=== PATIENT | female | born 1930 | race Caucasian/White ===

== ENCOUNTER 2017-06-02 19:36 | Inpatient (IN) | payer OTHER ==
[~2017-06-02] VITALS: Ht 157.5 cm; Wt 81.6 kg
--- NOTE | 2017-06-02 19:36 | NUR ---
Patient MIMATristin MATT, triaged by RN. Waiting for an available bed.
[2017-06-02 19:40] VITALS: BP 148/86
[2017-06-02] MEDS ORDERED: KETOROLAC 30 MG/ML VIAL IM ONE (19:50)
--- NOTE | 2017-06-02 20:02 | NUR ---
Patient taken to CT scan via ambulance gurney by tech.
--- NOTE | 2017-06-02 20:36 | NUR ---
Patient transferred to bed 10 for further care. RN evaluating patient at bedside.
--- NOTE | 2017-06-02 20:52 | NUR ---
Patient taken to CT scan via gurney by Bex.
--- NOTE | 2017-06-02 21:00 | NUR ---
87Y/F BIBA C/O RT HIP PAIN. PMH DM, HTN, DEMENTIA. PERUVIAN SPEAKING ONLY.ALLERGY TO ERYTHROMYCIN AND CITRUS. PER EMS PT WAS TRYING TO GET OUT OF BED AND FELL ONTO RT HIP. SKIN TO RT HIP IS INTACT, NO BRUISING NOTED AT THIS TIME. PT IS SPEAKING MUMBLED PERUVIAN THAT DOES NOT MAKE SENSE. PT IS AWAKE AND ALERT TO NAME. PER EMS PT DOES NOT AMBULATE AT HOME. ER MD AWARE OF PT STATUS.
[2017-06-02 22:45] LABS: BASOPHILS # (AUTO) 0.3 K/uL (0.00-0.22); BASOPHILS % (AUTO) 3.1 % (0.0-2.0); EOSINOPHILS # (AUTO) 0.1 K/uL (0-0.4); EOSINOPHILS % (AUTO) 0.7 % (0.0-4.0); HEMATOCRIT 39.3 % (36-48); HEMOGLOBIN 12.9 g/dL (12.0-16.0); LYMPHOCYTES # (AUTO) 0.9 K/uL (2.5-16.5); LYMPHOCYTES % (AUTO) 8.9 % (20.5-51.1); MEAN CORPUSCULAR HEMOGLOBIN 27 pg (27-31); MEAN CORPUSCULAR HGB CONC 33 g/dL (33-37); MEAN CORPUSCULAR VOLUME 82 fL (80-94); MONOCYTES # (AUTO) 0.9 K/uL (0.8-1.0); MONOCYTES % (AUTO) 9.3 % (1.7-9.3); NEUTROPHILS # (AUTO) 7.6 K/uL (1.8-7.7); PLATELET COUNT (AUTO) 452 K/uL (140-450); RED BLOOD CELL COUNT(AUTO) 4.79 MIL/uL (4.20-5.40); WHITE BLOOD COUNT (AUTO) 9.8 K/uL (4.8-10.8)
[2017-06-02 22:53] LABS: ANION GAP 16.4 (8-16); CARBON DIOXIDE 24.9 mmol/L (21-32); CHLORIDE 104 mmol/L (98-107); CREATININE 2.7 mg/dL (0.6-1.3); GLUCOSE 142 mg/dL (74-106); POTASSIUM 4.3 mmol/L (3.5-5.1); SODIUM SERUM 141 mmol/L (136-145); UREA NITROGEN, BLOOD 37 mg/dL (7-18)
[2017-06-02 22:59] LABS: ALBUMIN 2.1 g/dL (3.4-5.0); ASPARTATE AMINOTRANSFERASE 21 U/L (15-37); TOTAL BILIRUBIN 0.4 mg/dL (0.0-1.0)
[2017-06-02] MEDS ORDERED: NACL 0.9% 500 ML IV ONE (23:05)
[2017-06-02] MEDS ORDERED: MORPHINE SULFATE 4 MG/ML SYR IVP ONE (23:05)
--- NOTE | 2017-06-02 23:34 | NUR ---
PT IS SPEAKING IN NEPALI BUT DOES NOT MAKE SENSE. PT IS TRYING TO GET OUT OF BED, REORIENTED PT TO STAY IN BED. SIDE RAILS UP X2. COMFORT NEEDS MET AT THIS TIME, WILL CONTINUE TO MONITOR.
[2017-06-03] VITALS (7 sets, daily range): BP systolic 81–119; BP diastolic 52–85
--- NOTE | 2017-06-03 | NUR ---
PT IN BED SPEAKING BAHRAINI PULLING OFF LEADS, REORIENTED, WILL CONTINUE TO MONITOR , SIDE RAILS UP X2.
--- NOTE | 2017-06-03 00:02 | NUR ---
PER PT RECORDS PACKET PT WAS DIAGNOSED W/ C.DIFF. AT [facility] ON 05/28/17. ADMITTING MD NOTIFIED. PT ALSO HAS RECORD OF BL PE, DVT OF UNKNOWN DATE.
[2017-06-03] MEDS ORDERED: HYDROcodone/APAP 5/325 MG 1 TAB TAB PO PRN (00:35)
[2017-06-03] MEDS ORDERED: ONDANSETRON 4 MG/2 ML VIAL IVP PRN (00:35)
[2017-06-03] MEDS ORDERED: INSULIN LISPRO SLIDING SCALE 100 UNITS/ML VIAL SUBQ PRN (00:35)
[2017-06-03] MEDS ORDERED: ACETAMINOPHEN 325 MG TAB PO PRN (00:35)
[2017-06-03] MEDS ORDERED: DEXTROSE 50% 50 ML SYR IVP PRN (00:35)
[2017-06-03] MEDS ORDERED: MECLIZINE 25 MG TAB PO PRN (00:35)
[2017-06-03] MEDS ORDERED: MORPHINE SULFATE 2 MG/ML SYR IVP PRN (00:35)
--- NOTE | 2017-06-03 00:41 | NUR ---
Patient will be admitted to care of DR TUBBS. Admited to TELE. Will go to room 124-A. Belongings list completed. Report to ANTHONY VALADEZ.
--- NOTE | 2017-06-03 00:55 | NUR ---
PT ARRIVED IN THE UNIT, RECEIVED REPORT FROM ER NURSE, PT STABLE, NO DISTRESS NOTED, CONFUSED, ALERT ORIENTED X1, IV TO L AC INFUSING WELL, CALL LIGHT WITHIN REACH, WILL CONTINUE TO MONITOR.
--- NOTE | 2017-06-03 01:14 | NUR ---
RADIOLOGY CALLED SAYING THAT CT AND PORTABLE XRAY WON'T BE AVAILABE UNTIL 6 AND 7 AM
[2017-06-03] MEDS ORDERED: ASCO500T45 PO (01:33)
[2017-06-03] MEDS ORDERED: CRAN450C PO (01:35)
[2017-06-03] MEDS ORDERED: LACT-2 (01:37)
[2017-06-03] MEDS ORDERED: LOSA100T1 PO (01:38)
[2017-06-03] MEDS ORDERED: METF500T2 PO (01:38)
[2017-06-03] MEDS ORDERED: APIX5TAB PO (01:39)
[2017-06-03] MEDS ORDERED: QUEtiapine FUMARATE 25 MG TAB PO PRN (01:40)
[2017-06-03] MEDS ORDERED: OMEP20TC12 PO (01:40)
[2017-06-03] MEDS ORDERED: VAN500I (01:40)
[2017-06-03] MEDS: NACL 0.9% 1,000 ML IV SCH ×3 (02:39→19:00)
--- NOTE | 2017-06-03 03:59 | NUR ---
PT BP 83/52, RETOOK BP 83/52, CALLED DR MORGAN REGARDING PT BP, TO BOLUS PT WITH NS, AND WILL PUT IN ORDERS.
[2017-06-03] MEDS ORDERED: NACL 0.9% 1,000 ML IV ONE (04:00)
--- NOTE | 2017-06-03 04:45 | NUR ---
1L BOLUS DONE, PT BP 104/54, NO S/S OF DISTRESS, PT STABLE, CALL LIGHT WITHIN REACH, WILL CONTINUE TO MONITOR.
[2017-06-03 04:52] LABS: FREE T4 (FREE THYROXINE) 1.51 ng/dL (0.76-1.46); MAGNESIUM 1.3 mg/dL (1.8-2.4); THYROID STIMULATING HORMONE 0.67 uIU/mL (0.34-3.74)
[2017-06-03] MEDS ORDERED: WATER STERILE 20 ML MC ONE (05:59)
[2017-06-03] MEDS ORDERED: VANCOMYCIN 500 MG VIAL PO SCH (06:00)
[2017-06-03] MEDS: BLOOD GLUCOSE MONITORING 1 DEV DEV FS SCH ×4 (06:23→21:00)
--- NOTE | 2017-06-03 07:23 | NUR ---
GAVE BEDSIDE TO DAY SHIFT NURSE IBRAHIMA CRUZ, ENDORSED PLAN OF CARE, PT STABLE, NO DISTRESS NOTED.
--- NOTE | 2017-06-03 07:24 | NUR ---
RECEIVED PATIENT REPORT AT BEDSIDE. PATIENT IS AAOX2 AND SHOWS NO S/S OF ACUTE DISTRESS ON ROOM AIR. PATIENT DENIES PAIN AT THIS TIME. NOTED LEFT HAND AND FA DRX DRY AND INTACT, ALSO SCABS ON THE RIGHT KNEE. IV NOTED ON THE L AC SL. ON TELE MONITORING. THE BED IS IN LOW POSITION, FALL PRECAUTIONS IN PLACE WITH CALL LIGHT WITHIN REACH. WILL CONTINUE TO MONITOR. Addendum: 06/03/17 at 1011 by Wendi Puga RN WRONG PATIENT
--- NOTE | 2017-06-03 07:24 | NUR ---
RECEIVED PATIENT REPORT AT BEDSIDE FROM NIGHT NURSE. PATIENT IS AAOX1 WITH EPISODES OF CONFUSION AND SHOWS NO S/S OF ACUTE DISTRESS ON ROOM AIR. PATIENT DENIES PAIN AT THIS TIME. NOTED ERYTHEMA UNDER BREASTS AND SKIN TEAR ON THE LEFT FOREARM YVONNE. IV NOTED ON THE L AC WITH IVF'S INFUSING WELL. ON TELE MONITORING. THE BED IS IN LOW POSITION, FALL AND CONTACT PRECAUTIONS IN PLACE WITH CALL LIGHT WITHIN REACH. WILL CONTINUE TO MONITOR.
[2017-06-03] MEDS: LOSARTAN 50 MG TAB PO SCH (09:00)
[2017-06-03] MEDS ORDERED: LACTOBACILLUS RHAMNOSUS GG 1 EACH CAP PO SCH (09:00)
--- NOTE | 2017-06-03 09:25 | NUR ---
PATIENT HAS BEEN SCREENED AND CATEGORIZED HIGH NUTRITION RISK FOR MALNUTRITION. PATIENT WILL BE SEEN WITHIN 1-2 DAYS OF ADMISSION. 06/02/17-06/03/[address]
[2017-06-03] MEDS: PANTOPRAZOLE 40 MG TABEC PO SCH (09:36)
[2017-06-03] MEDS: DOCUSATE SODIUM 100 MG GELCAP PO SCH ×2 (09:36→20:32)
[2017-06-03] MEDS: ASCORBIC ACID 500 MG TAB PO SCH (09:37)
[2017-06-03] MEDS: NACL 0.9% IRR 250 ML BOTTLE IR SCH (09:37)
[2017-06-03] MEDS: NYSTATIN POW 100 MU/GM 15 GM BTL TP SCH (09:37)
[2017-06-03] MEDS: APIXABAN 2.5 MG TAB PO SCH ×2 (09:46→20:31)
--- NOTE | 2017-06-03 10:00 | NUR ---
ADMINISTERED SCHEDULED MEDICATIONS. PATIENT SWALLOWED WITHOUT DIFFICULTY. PATIENT'S NEEDS MET AT THIS TIME. THE BED IN LOW POSITION, BED ALARM ACTIVATED, AND CALL LIGHT WITHIN REACH.
[2017-06-03 10:15] LABS: BASOPHILS # (AUTO) 0.3 K/uL (0.00-0.22); BASOPHILS % (AUTO) 4.8 % (0.0-2.0); EOSINOPHILS # (AUTO) 0.1 K/uL (0-0.4); EOSINOPHILS % (AUTO) 2.3 % (0.0-4.0); HEMATOCRIT 35.3 % (36-48); HEMOGLOBIN 11.4 g/dL (12.0-16.0); LYMPHOCYTES % (AUTO) 17.8 % (20.5-51.1); MEAN CORPUSCULAR HEMOGLOBIN 27 pg (27-31); MEAN CORPUSCULAR HGB CONC 33 g/dL (33-37); MEAN CORPUSCULAR VOLUME 84 fL (80-94); MONOCYTES # (AUTO) 0.7 K/uL (0.8-1.0); MONOCYTES % (AUTO) 12.7 % (1.7-9.3); NEUTROPHILS # (AUTO) 3.3 K/uL (1.8-7.7); NEUTROPHILS % (AUTO) 62.4 % (42.2-75.2); PLATELET COUNT (AUTO) 365 K/uL (140-450); RED BLOOD CELL COUNT(AUTO) 4.19 MIL/uL (4.20-5.40); RED CELL DISTRIBUTION WIDTH 13.2 % (11.6-13.7); WHITE BLOOD COUNT (AUTO) 5.4 K/uL (4.8-10.8)
[2017-06-03 10:19] LABS: ANION GAP 14.4 (8-16); CARBON DIOXIDE 22.2 mmol/L (21-32); CHLORIDE 108 mmol/L (98-107); CREATININE 2.3 mg/dL (0.6-1.3); GLUCOSE 114 mg/dL (74-106); POTASSIUM 3.6 mmol/L (3.5-5.1); SODIUM SERUM 141 mmol/L (136-145); UREA NITROGEN, BLOOD 36 mg/dL (7-18)
[2017-06-03 10:22] LABS: PROTHROMBIN TIME 13.1 secs (10.8-13.4)
[2017-06-03 10:28] LABS: MAGNESIUM 1.2 mg/dL (1.8-2.4); PHOSPHORUS 3.9 mg/dL (2.5-4.9)
--- NOTE | 2017-06-03 10:45 | NUR ---
PATIENT IS BEING SEEN BY Asoka.
[2017-06-03] MEDS ORDERED: LACTULOSE 20 GM/30 ML UDC PO SCH (11:30)
--- NOTE | 2017-06-03 13:30 | NUR ---
PATIENT WAS FOUND CRYING RUBBING ON HER LEFT THIGH. WHEN ASKED IF SHE IS IN PAIN SHE SAYS, "SI". WHEN ASKED TO RATE HER PAIN FROM 1-10, PATIENT ONLY CRIES. FLACC IS 6. WILL ADMINISTER PRN PAIN MEDICATION FOR MODERATE PAIN.
--- NOTE | 2017-06-03 13:51 | NUR ---
ADMINISTERED NORCO 5/325 MG PO FOR MODERATE PAIN. WILL REASSESS IN ONE HR.
--- NOTE | 2017-06-03 13:52 | NUR ---
PATIENT BEING SEEN BY PHYSICAL THERAPY.
--- NOTE | 2017-06-03 14:11 | NUR ---
NO PICTURE RECORDED OF THE LEFT FOREARM SKIN TEAR NOTED DURING CHANGE OF SHIFT AT 0724. PICTURE TAKEN OF SKIN TEAR ON PATIENT'S LEFT FOREARM.
--- NOTE | 2017-06-03 14:29 | NUR ---
PATIENT IS SLEEPING AND SHOWS NO S/S OF ACUTE DISTRESS AT THIS TIME. WILL CONTINUE TO MONITOR.
--- NOTE | 2017-06-03 14:42 | NUR ---
NOTIFIED DR KAPOOR OF MAGNESIUM OF 1.2. WILL AWAIT NEW ORDERS.
[2017-06-03] MEDS ORDERED: MAGNESIUM OXIDE 400 MG TAB PO SCH (15:30)
--- NOTE | 2017-06-03 16:30 | NUR ---
ASSUMED CONTINUITY OF CARE FROM IBRAHIMA CHAMORRO. IN STABLE CONDITION.
--- NOTE | 2017-06-03 16:30 | NUR ---
GAVE PATIENT REPORT TO DARRION GOODMAN. PATIENT ENDORSED IN STABLE CONDITION.
--- NOTE | 2017-06-03 16:39 | NUR ---
06/03/17 RD INITIAL ASSESSMENT COMPLETED PLEASE REFER TO NUTRITION ASSESSMENT UNDER CARE ACTIVITY FOR ESTIMATED NUTRITIONAL NEEDS. 1. CONTINUE PO INTKAE TOLERATED, MONITOR NURSING NOTED INTAKE 2. RD TO FOLLOW-UP DAYS, RISK GRANT TA RD
--- NOTE | 2017-06-03 19:05 | NUR ---
BEDSIDE REPORT GIVEN TO JOSE C ANSARI -ANTHONY. IVF INFUSING WELL. IN STABLE CONDITION.
--- NOTE | 2017-06-03 19:10 | NUR ---
RECEIVED REPORT FROM DAY SHIFT NURSE. PT LYING COMFORTABLY IN BED. NO C/O PAIN OR DISCOMFORT NOTED. IV TO LEFT AC #20G WITH NS AT 120 ML/HR, INFUSING WELL. FALL AND SAFETY PRECAUTION IN PLACE. CALL LIGHT WITHIN REACH. WILL CONTINUE TO MONITOR.
--- NOTE | 2017-06-03 20:35 | NUR ---
PT TURNED AND REPOSITIONED. NO S/S OF PAIN OR DISCOMFORT. FALL PRECAUTION IN PLACE. CALL LIGHT WITHIN REACH.
[2017-06-04] VITALS: BP 99/60
--- NOTE | 2017-06-04 00:12 | NUR ---
PT SLEEPING. NO S/S OF DISTRESS. CALL LIGHT WITHIN REACH.
[2017-06-04] MEDS: NACL 0.9% 1,000 ML IV SCH ×2 (01:34→13:13)
--- NOTE | 2017-06-04 03:15 | NUR ---
PT SLEEPING BUT WAKES EASILY. NO S/S OF PAIN OR DISCOMFORT. CALL LIGHT WITHIN REACH/
[2017-06-04 04:00] VITALS: BP 115/75
--- NOTE | 2017-06-04 06:46 | NUR ---
BLOOD SUGAR CHECKED 75. ORANGE JUICE GIVEN TO PT. BS RE CHECKED 98. Addendum: 06/04/17 at 0724 by Kari Eller RN INCORRECT
--- NOTE | 2017-06-04 06:47 | NUR ---
BLOOD SUGAR CHECKED 75. APPLE JUICE GIVEN TO PT. BS RE CHECKED 98.
[2017-06-04 06:48] LABS: BASOPHILS # (AUTO) 0.2 K/uL (0.00-0.22); BASOPHILS % (AUTO) 3.3 % (0.0-2.0); EOSINOPHILS # (AUTO) 0.2 K/uL (0-0.4); EOSINOPHILS % (AUTO) 4.3 % (0.0-4.0); HEMATOCRIT 35.9 % (36-48); LYMPHOCYTES # (AUTO) 1.1 K/uL (2.5-16.5); LYMPHOCYTES % (AUTO) 20.3 % (20.5-51.1); MEAN CORPUSCULAR HEMOGLOBIN 28 pg (27-31); MEAN CORPUSCULAR HGB CONC 34 g/dL (33-37); MEAN CORPUSCULAR VOLUME 84 fL (80-94); MONOCYTES # (AUTO) 0.5 K/uL (0.8-1.0); MONOCYTES % (AUTO) 9.3 % (1.7-9.3); NEUTROPHILS # (AUTO) 3.5 K/uL (1.8-7.7); NEUTROPHILS % (AUTO) 62.8 % (42.2-75.2); PLATELET COUNT (AUTO) 372 K/uL (140-450); RED CELL DISTRIBUTION WIDTH 13.3 % (11.6-13.7); WHITE BLOOD COUNT (AUTO) 5.5 K/uL (4.8-10.8)
[2017-06-04 06:59] LABS: ANION GAP 14.9 (8-16); CHLORIDE 112 mmol/L (98-107); CREATININE 1.6 mg/dL (0.6-1.3); GLUCOSE 91 mg/dL (74-106); POTASSIUM 3.9 mmol/L (3.5-5.1); SODIUM SERUM 145 mmol/L (136-145); UREA NITROGEN, BLOOD 30 mg/dL (7-18)
[2017-06-04 07:07] LABS: CHOL/HDL RATIO 3.6 (1-4.5)
--- NOTE | 2017-06-04 07:20 | NUR ---
ENDORSED PT TO DAY SHIFT NURSE. PT IN STABLE CONDITION.
--- NOTE | 2017-06-04 07:25 | NUR ---
ENDORSEMENT RECEIVED FROM WARP DYEING VAT TENDER NURSE. PATIENT IS AWAKE. RESPIRATION EVEN, UNLABOR. DENIED PAIN, N/V AT THIS TIME. SKIN DRY AND WARM. IV INFUSING WELL. CALL LIGHT WITHIN REACH. WILL CONTINUE TO MONITOR
[2017-06-04] MEDS: BLOOD GLUCOSE MONITORING 1 DEV DEV FS SCH ×4 (07:28→21:17)
--- NOTE | 2017-06-04 07:45 | NUR ---
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
[2017-06-04 08:00] VITALS: BP_SYST 123; BP_SYST 125; BP_DIAS 54; BP_DIAS 72
--- NOTE | 2017-06-04 08:40 | NUR ---
PATIENT AWAKE, CRYING, COMPLAINED OF PAIN ON THE LEFT HIP 12/21. FAMILY AT BEDSIDE. WILL MEDICATE PER ORDER
[2017-06-04] MEDS: ASCORBIC ACID 500 MG TAB PO SCH (08:43)
[2017-06-04] MEDS: DOCUSATE SODIUM 100 MG GELCAP PO SCH ×2 (08:43→21:13)
[2017-06-04] MEDS: LOSARTAN 50 MG TAB PO SCH (08:44)
[2017-06-04] MEDS: PANTOPRAZOLE 40 MG TABEC PO SCH (08:44)
[2017-06-04] MEDS: APIXABAN 2.5 MG TAB PO SCH ×2 (08:51→21:16)
[2017-06-04] MEDS: NYSTATIN POW 100 MU/GM 15 GM BTL TP SCH (08:52)
[2017-06-04] MEDS: NACL 0.9% IRR 250 ML BOTTLE IR SCH (08:52)
--- NOTE | 2017-06-04 10:40 | NUR ---
DR. KAPOOR WAS MADE AWARE OF THE MAG 1.3
--- NOTE | 2017-06-04 11:14 | NUR ---
BREAST AND ABDOMEN UNDER FOLD WAS CLEANED, AND INTERDRY WERE PLACED IN
[2017-06-04] MEDS ORDERED: MAGNESIUM OXIDE 400 MG TAB PO SCH (11:30)
[2017-06-04 12:00] VITALS: BP 117/71
--- NOTE | 2017-06-04 12:30 | NUR ---
IV WAS REMOVED FROM LEFT AC, CATHETER TIP INTACT. NO ACTIVE BLEEDING SEEN. PATIENT TOLERATED WELL
--- NOTE | 2017-06-04 13:30 | NUR ---
Drum Tester attempted to contact Patient's daughter Sherita Laboy at to discuss and coordinate patients D/C scheduled for 06/05/17 at about 11:00am and transportation cost of $106.00 that patient's daughter will have to be responsible for cost. No response and Drum Tester left her a voicemail MSG to contact back as soon as possible.
--- NOTE | 2017-06-04 13:47 | NUR ---
EMRE CALL AT [facility] EXTENDED [facility] PT WILL BE ACCEPTED BACK FOR ADMISSION. INFORMED HER THAT PLAN IS TO DISCHARGE PT TOMORROW. INFORMATION FAXED TO [facility] [phone] AND PHONE IS [phone].
--- NOTE | 2017-06-04 13:48 | NUR ---
CM NOTE PER [facility] [facility] [place]# [phone] PATIENT CAN GO TO [facility] [address] MCGRAW WHEN DISCHARGED. CHARGE NURSE MIROSLAVA RAMIREZ.
--- NOTE | 2017-06-04 14:11 | NUR ---
CM NOTE PER DR. KAPOOR POSSIBLE DISCHARGE ON 06/05/17, SPOKE WITH TSERING OF [facility] PH# [phone], PATIENT WILL BE PICKED UP AT 1100 ON 06/05/17 GOING TO [facility] [address] M[address], NUMBER TO CALL FOR REPORT PH# [phone]. CHARGE NURSE MIROSLAVA AND NURSE DONTA RAMIREZ.
--- NOTE | 2017-06-04 14:20 | NUR ---
PATIENT IS AWAKE, ALERT. RESPIRATION EVEN, UNLABOR. DENIED PAIN AT THIS TIME. NO DISTRESS NOTED. CALL LIGHT WITHIN REACH. WILL CONTINUE TO MONITOR
--- NOTE | 2017-06-04 16:00 | NUR ---
PATIENT REFUSED TO HAVE IV PLACED
[2017-06-04 16:11] VITALS: BP 123/54
--- NOTE | 2017-06-04 16:30 | NUR ---
DR. DORSEY WAS MADE AWARE OF PATIENT'S EKG WITH SINUS TACH AND ELEVATED T WAVE
--- NOTE | 2017-06-04 18:10 | NUR ---
PATIENT IS AWAKE, ALERT, EATING DINNER. RESPIRATION EVEN, UNLABOR. IV INFUSING WELL. DENIED PAIN, N/V. NO DISTRESS NOTED AT THIS TIME. CALL LIGHT WITHIN REACH. WILL CONTINUE TO MONITOR Addendum: 06/04/17 at 1816 by Sultana Batres RN NO IV ACCESS PATIENT CONTINUES TO REFUSE
--- NOTE | 2017-06-04 19:22 | NUR ---
ENDORSEMENT GIVEN TO THE INSPECTOR AND TESTER NURSE. PATIENT IS STABLE AT THIS TIME
--- NOTE | 2017-06-04 19:24 | NUR ---
PHYSICAL THERAPY CO-SIGN The Physical Therapy Progress Notes documented by Automotive Fleet Supervisor have been reviewed. Reviewed/Co-Signed by: Ping Adkins Documentation Done by:EUNICE ARAUZ PTA
--- NOTE | 2017-06-04 19:30 | NUR ---
RECEIVED REPORT FROM DAY SHIFT NURSE. PT LYING COMFORTABLY IN BED. NO S/S OF DISTRESS. PT HAS NO IV LINE AND REFUSED REINSERTION. ENCOURAGED PT TO DRINK MORE FLUIDS. FALL AND SAFETY PRECAUTION IN PLACE. WILL CONTINUE TO MONITOR. CALL LIGHT WITHIN REACH.
[2017-06-04 20:00] VITALS: BP 106/70
--- NOTE | 2017-06-04 21:35 | NUR ---
PT REFUSED TO INSERT AN IV LINE. DR. MORGAN MADE AWARE. NO NEW ORDER.
[2017-06-05] VITALS: BP 116/68
--- NOTE | 2017-06-05 00:50 | NUR ---
PT IN BED AWAKE. NO S/S OF DISTRESS NOTED. FALL PRECAUTION IN PLACE. CALL LIGHT WITHIN REACH.
--- NOTE | 2017-06-05 03:05 | NUR ---
PT AWAKE. PULLED OUT TELE MONITOR X3. EXPLAINED TO PT THAT SHE NEEDS THE TELEMONITOR. NO S/S OF DISTRESS. CALL LIGHT WITHIN REACH.
[2017-06-05 04:00] VITALS: BP 107/72
[2017-06-05] MEDS: NACL 0.9% 1,000 ML IV SCH (05:07)
[2017-06-05] MEDS: BLOOD GLUCOSE MONITORING 1 DEV DEV FS SCH (06:23)
--- NOTE | 2017-06-05 06:25 | NUR ---
BLOOD SUGAR CHECKED 114. NO INSULIN COVERAGE. FALL PRECAUTION IN PLACE. CALL LIGHT WITHIN REACH.
--- NOTE | 2017-06-05 07:10 | NUR ---
ENDORSED PT TO DAY SHIFT NURSE. PT IN STABLE CONDITION.
--- NOTE | 2017-06-05 07:20 | NUR ---
REPORT RECEIVED FROM CAUL PULLER, PT AWAKE ALERT CONFUSED AT BASE LINE, RESP EVEN UNLABORED ON ROOM AIR, SKIN WARM DRY COLOR WNL, PT DENIES PAIN OR DISCOMFORT, PLAN OF CARE REVIEWED, NO IMMEDIATE NEEDS IDENTIFIED, CALL CARRASCO WITHIN REACH, SIDE RAILS UP, BED LOCKED IN LOW POSITION, WILL CONTINUE TO MOTINR.
[2017-06-05 08:00] VITALS: BP 130/69
[2017-06-05] MEDS ORDERED: QUET25TA46 PO (08:14)
[2017-06-05] MEDS ORDERED: MECL-272 PO (08:14)
[2017-06-05] MEDS: ASCORBIC ACID 500 MG TAB PO SCH (08:38)
[2017-06-05] MEDS: PANTOPRAZOLE 40 MG TABEC PO SCH (08:38)
[2017-06-05] MEDS: LOSARTAN 50 MG TAB PO SCH (08:39)
[2017-06-05] MEDS: APIXABAN 2.5 MG TAB PO SCH (08:43)
[2017-06-05] MEDS: NACL 0.9% IRR 250 ML BOTTLE IR SCH (08:46)
[2017-06-05] MEDS: NYSTATIN POW 100 MU/GM 15 GM BTL TP SCH (08:47)
[2017-06-05] MEDS: DOCUSATE SODIUM 100 MG GELCAP PO SCH (08:47)
--- NOTE | 2017-06-05 08:50 | NUR ---
DUE MEDS GIVEN, STEFANO WELL, DAUGHTER AT BEDSIDE, NO PAIN OR DISCOMFORT VOICED, DENIES ANY IMMEDIATE NEEDS.
[2017-06-05] MEDS ORDERED: MUPIROCIN 2% OINT 22 GM TUBE TP SCH (09:00)
[2017-06-05] MEDS ORDERED: CHLORHEXADINE GLUC 2% CLOTH TP SCH (09:00)
--- NOTE | 2017-06-05 10:50 | NUR ---
PT TO BE TRANSFERED TO [facility], DISTRICT FIRE MANAGEMENT OFFICER BY [employer] AT 11AM, REPORT CALLED TO ABELARDO AT [phone], DAUGHTER JOLIE CALLED TO NOTIFY THAT PT IS TRANSFERED BACK TO [facility]. PHOTO TAKEN OF SKIN FOLDS BILAT ABD, BILAT BREAST, LEFT FA. AWAITING [facility] FOR TRANSFER.
--- NOTE | 2017-06-05 11:15 | NUR ---
06/05/17 RD FOLLOW UP COMPLETED PLEASE REFER TO NUTRITION PROGRESS NOTE UNDER CARE ACTIVITY FOR ESTIMATED NUTRITION NEEDS. RD RECOMMENDATIONS: 1. CONTINUE CURRENT DIET TOLERATED 2. RDN TO PROVIDE HEALTH SHAKE SUGAR-FREE TID DUE TO SUBOPTIMAL PO INTAKES. 3. CONSULT RDN PRN. 3. RD WILL F/U 3-5 DAYS; MODERATE RISK. ESTER TOLENTINO, MS, RDN
--- NOTE | 2017-06-05 12:20 | NUR ---
[facility] HERE TO PHOTOGRAPHER'S MODEL PT, REPORT GIVEN TO EMS, ALL BELONGINGS TAKEN WITH PT, COPY OF CHART AND DISCHARGE INSTRUCTION GIVEN TO EMT, PT TRANSFERED TO [facility] AT THIS TIME.
== END 2017-06-05 12:20 | DRG 682 ==
LOC: MED 19:36 → UNDOADMIN 23:40 → MTU 23:40
PROVIDERS: ADMIT Family Medicine; ATTEND Family Medicine
DX: N17.0 Acute kidney failure with tubular necrosis (principal); E43 Unspecified severe protein-calorie malnutrition; A04.72 Enterocolitis due to Clostridium difficile, not specified as recurrent; E11.65 Type 2 diabetes mellitus with hyperglycemia; D68.59 Other primary thrombophilia; E11.51 Type 2 diabetes mellitus with diabetic peripheral angiopathy without gangrene; F03.91 Unspecified dementia, unspecified severity, with behavioral disturbance; G90.9 Disorder of the autonomic nervous system, unspecified; S09.90XA Unspecified injury of head, initial encounter; I10 Essential (primary) hypertension; E66.9 Obesity, unspecified; S79.912A Unspecified injury of left hip, initial encounter; L30.4 Erythema intertrigo; Z79.01 Long term (current) use of anticoagulants; Z79.84 Long term (current) use of oral hypoglycemic drugs; Z68.32 Body mass index [BMI] 32.0-32.9, adult; Z88.1 Allergy status to other antibiotic agents; Z91.018 Allergy to other foods; Z96.653 Presence of artificial knee joint, bilateral; Z87.11 Personal history of peptic ulcer disease; Z86.711 Personal history of pulmonary embolism; Z86.718 Personal history of other venous thrombosis and embolism; W06.XXXA Fall from bed, initial encounter; Y93.89 Activity, other specified; Y92.89 Other specified places as the place of occurrence of the external cause; Y99.8 Other external cause status
CPT/HCPCS: 36415; 70450; 71010; 72170; 80048; 80053; 82140; 82150; 82948; 83036; 83690; 83735; 83880; 84100; 84439; 84443; 84484; 85025; 85610; 85730; 87081; 93005; 93880; 93925; 93970; 96361; 96372; 96374; 97110; 97140; 97530; 99285; J1815; J1885; J2270; J3370; J7030; Q0092